=== PATIENT | female | born 1955 | race Caucasian/White ===

== ENCOUNTER 2018-05-04 12:49 | Outpatient (REF) | payer OTHER, SELFPAY ==
[2018-05-04 14:28] LABS: ALT 22 U/L (12-78); AST 22 U/L (15-37); Albumin 3.7 g/dL (3.4-5.0); Alkaline Phosphatase 85 U/L (46-116); Anion Gap 9.4 mmol/L (3-11); BUN 21 mg/dL (7-18); Bilirubin, Total 0.5 mg/dL (0.2-1.0); CO2 26.6 mmol/L (21.0-32.0); CREATININE 1.07 mg/dL (0.55-1.02); Chloride 105 mmol/L (98-107); Cholesterol 226 mg/dL (50-200); Estimated GFR 51.79 (mL/min/1.73m2); Glucose 93 mg/dL (70-100); HDL Cholesterol 77 mg/dL (40-60); LDL CHOLESTEROL 128 mg/dL (<100); Potassium 4.8 mmol/L (3.5-5.1); Sodium 141 mmol/L (136-145); Total Protein 7.3 g/dL (6.4-8.2); Triglyceride 50 mg/dL (30-150)
== END 2018-05-04 13:09 ==
LOC: NCHCN 12:49
PROVIDERS: PCP Nurse Practitioner; Visit Provider Nurse Practitioner
DX: Z00.00 Encounter for general adult medical examination without abnormal findings (principal); Z13.220 Encounter for screening for lipoid disorders; Z13.228 Encounter for screening for other metabolic disorders
CPT/HCPCS: 80053; 80061; 83721

== ENCOUNTER 2018-05-20 00:40 | Outpatient (CLI) | payer OTHER, SELFPAY ==
--- NOTE | 2018-05-20 15:52 | DI.MAMMO_ITS ---
SYMPTOMS/DIAGNOSIS: SCREENING, Z12.39 MAMMOGRAMS: Mammograms were interpreted according to the usual protocol including computer analysis with CAD system, tomosynthesis and C view imaging. The breasts are of moderate density with fairly symmetrical distribution of fibroglandular tissue. No dominant mass or clumped microcalcification is identified in either breast. Current examination is compared with previous examinations including June 2016 and there has been no gross interval change in appearance in comparison with the previous studies. CONCLUSION: No specific evidence of malignancy at this time. Routine screening examinations are suggested at yearly intervals in this age group according to the ACS/ACR guidelines. Category 1, breast density category B. MQSA ASSESSMENT OF FINDINGS: Negative. Category 1. Patient will receive a letter notifying them of these results. BI-RADS category B. There are scattered areas of fibroglandular density.
== END 2018-05-20 01:00 ==
PROVIDERS: PCP Nurse Practitioner; Visit Provider Nurse Practitioner
DX: Z12.31 Encounter for screening mammogram for malignant neoplasm of breast (principal)
CPT/HCPCS: 77063; 77067

== ENCOUNTER 2018-06-22 11:51 | Outpatient (REF) | payer OTHER, SELFPAY ==
--- NOTE | 2018-06-22 10:30 | PAPFT_PTH ---
PATIENT: Lisa Hyman LOC: [facility] U#:[id number] AGE/SX: 62/F ROOM: RE06/22/[address]: WINSTON Dunlap : 1955 BED: DIS: 06/22/2018 SPEC #: [id number] RECD: 06/22/18 13:06 STATUS: MAGALI REMaggi #: [id number] STACEY: 06/22/18 10:[address]: Ilana Peterson DEPT: [facility] Cytology RECD BY: Nahed Franco ENTERED: 06/22/18 13:06 SP TYPE: PAPFT OTHR DR: Saritha Daugherty Tissues: 1 - CX/ENDOCX FOR PAP SMEARS Procedures: PAP THIN PREP/[facility]VM Screening HPV DNA PROBE Comments: [id number]
== END 2018-06-22 12:11 ==
LOC: LBN 11:51
PROVIDERS: PCP Nurse Practitioner; Visit Provider Nurse Practitioner Family
DX: Z12.4 Encounter for screening for malignant neoplasm of cervix (principal); Z11.51 Encounter for screening for human papillomavirus (HPV)
CPT/HCPCS: 88142; 87624

== ENCOUNTER 2019-07-15 08:58 | Outpatient (REF) | payer MEDICARE, SELFPAY ==
[2019-07-15 15:20] LABS: ALT 27 U/L (14-59); AST 21 U/L (15-37); Albumin 3.8 g/dL (3.4-5.0); Alkaline Phosphatase 85 U/L (46-116); Anion Gap 7.9 mmol/L (3-11); BUN 17 mg/dL (7-18); Bilirubin, Total 0.4 mg/dL (0.2-1.0); CO2 26.1 mmol/L (21.0-32.0); CREATININE 1.14 mg/dL (0.55-1.02); Calcium 9.1 mg/dL (8.5-10.1); Calculated LDL 219 mg/dL (<100); Chloride 105 mmol/L (98-107); Cholesterol 314 mg/dL (<200); Estimated GFR 47.99 (mL/min/1.73m2); Glucose 85 mg/dL (74-106); HDL Cholesterol 80 mg/dL (40-60); Potassium 4.5 mmol/L (3.5-5.1); Sodium 139 mmol/L (136-145); Total Protein 7.6 g/dL (6.4-8.2); Triglyceride 75 mg/dL (<150)
== END 2019-07-15 09:18 ==
LOC: NCHCN 08:58
PROVIDERS: PCP Nurse Practitioner; Visit Provider Nurse Practitioner
DX: E78.5 Hyperlipidemia, unspecified (principal); Z90.5 Acquired absence of kidney
CPT/HCPCS: 80053; 80061

== ENCOUNTER 2019-07-19 15:14 | Outpatient (CLI) | payer MEDICARE, SELFPAY ==
--- NOTE | 2019-07-19 | DI.RAD_ITS ---
EXAM: XR CHEST 2V PA LATERAL CLINICAL HISTORY: CHRONIC CHRONIC, R05, HX OF SMOKING TECHNIQUE: 2D digital imaging was performed. COMPARISON: No exams were available for comparison FINDINGS: MEDIASTINUM: Normal. HEART: Normal. PULMONARY VASCULATURE: Normal. LUNGS: Clear. PLEURAL SPACE: No pleural effusion or pneumothorax. BONE:Degenerative changes in the spine. OTHER FINDINGS:Normal. IMPRESSION: No acute pulmonary findings. DATA REPOSITORY: RADIATION DOSE DELIVERED:
== END 2019-07-19 15:34 ==
PROVIDERS: PCP Nurse Practitioner; Visit Provider Nurse Practitioner
DX: R05 Cough (principal); Z87.891 Personal history of nicotine dependence
CPT/HCPCS: 71046

== ENCOUNTER 2019-09-18 07:18 | Outpatient (CLI) | payer MEDICARE, SELFPAY ==
[2019-09-19 18:06] LABS: COVID-19 RT-PCR Result NEGATIVE (Negative)
== END 2019-09-18 07:38 ==
PROVIDERS: PCP Nurse Practitioner; Visit Provider Family Medicine
DX: Z11.59 Encounter for screening for other viral diseases (principal); Z01.818 Encounter for other preprocedural examination
CPT/HCPCS: U0003

== ENCOUNTER 2019-09-22 03:40 | Outpatient (CLI) | payer MEDICARE, SELFPAY ==
[2019-09-22] MEDS: Inhaler, Assist Device 1 EACH MC (11:19)
[2019-09-22] MEDS: Albuterol HFA 18 GM 200 PUFF INH IH (11:19)
--- NOTE | 2019-09-24 13:09 | W.PFT ---
Date of service: 09/22/19 Time of Service: 10:00 Pulmonary Function Test Result Interpretation Spirometry: No evidence of obstructive airways disease, no bronchodilator response Lung Volumes: No evidence of restriction Diffusion Capacity: Moderately reduced, which is mildly reduced when corrected to alveolar volume Airway Pressure: Normal Impression Isolated moderate diffusion defect. This can be seen in early, developing interstitial lung disease or in pulmonary hypertension. therefore clinical correlation and perhaps further work-up is recommended Clinical Correlation therefore is recommended.
== END 2019-09-22 04:00 ==
PROVIDERS: PCP Nurse Practitioner; Visit Provider Nurse Practitioner
DX: R05 Cough (principal); Z87.891 Personal history of nicotine dependence
CPT/HCPCS: 94060; 94726; 94729

== ENCOUNTER 2019-10-05 11:02 | Outpatient (CLI) | payer MEDICARE, SELFPAY ==
--- NOTE | 2019-10-05 09:30 | DI.RAD_ITS ---
EXAM: XR WRIST RT COMPLETE CLINICAL HISTORY: R wrist pain TECHNIQUE: COMPARISON: No exams were available for comparison FINDINGS: Three views were obtained. There are slight hypertrophic degenerative changes at the radioulnar join t. There is severe cartilaginous joint space narrowing at the navicular greater multangular joint wi th subchondral sclerosis of adjacent portions of the navicular. Otherwise cartilaginous joint spaces of the carpus appear fairly well maintained. Slight marginal osteophyte formation noted at navicula r greater multangular joint and probably also at navicular lesser multangular joint. No other bony a bnormality seen. IMPRESSION: Degenerative changes at the navicular greater multangular joint and navicular lesser multangular join t. No other significant findings. RADIATION DOSE DELIVERED: Total DLP
== END 2019-10-05 11:22 ==
PROVIDERS: PCP Nurse Practitioner; Referring Provider Nurse Practitioner; Visit Provider Orthopaedic Surgery
DX: M19.031 Primary osteoarthritis, right wrist (principal); M25.531 Pain in right wrist; M65.4 Radial styloid tenosynovitis [de Quervain]
CPT/HCPCS: 99203; 73110

== ENCOUNTER → 2020-04-13 10:33 | Outpatient (BNVA) | payer MEDICARE, SELFPAY | PROVIDERS: PCP Nurse Practitioner; Referring Provider Nurse Practitioner; Visit Provider Student in an Organized Health Care Education/Training Program | DX: M19.031 Primary osteoarthritis, right wrist (principal) | CPT/HCPCS: 99213 ==

== ENCOUNTER → 2020-05-18 08:24 | Outpatient (BNVA) | payer MEDICARE, SELFPAY | PROVIDERS: PCP Nurse Practitioner; Referring Provider Nurse Practitioner; Visit Provider Student in an Organized Health Care Education/Training Program | DX: M19.031 Primary osteoarthritis, right wrist (principal) | CPT/HCPCS: 99441 ==

== ENCOUNTER 2020-07-27 00:59 | Outpatient (CLI) | payer MEDICARE, SELFPAY ==
--- NOTE | 2020-07-27 11:30 | DI.MAMMO_ITS ---
Exam(s) MAMMO SCREENING EXAM: MAMMO SCREENING CLINICAL HISTORY: screening. TECHNIQUE: Bilateral full field digital CC and MLO mammographic images were obtained with 3D tomosyn thesis and utilizing computer aided detection (CAD). COMPARISON: Prior mammograms dating back to 2010, the most recent being May 2018. FINDINGS: There are no CAD designations. There are no new spiculated masses nor malignant appearing microcalcification groups. There is no significant architectural distortion nor skin thickening-retraction. IMPRESSION: No radiographic evidence of malignancy. BI-RADS Category 1 - Negative Breast Density - Category B - Scattered areas of fibroglandular density Breast density Category C or D implies that the patient has dense breast tissue. Dense breast tissue can make it harder to find cancer on a mammogram. Dense breast tissue is also associated with an incr eased risk of breast cancer. This information about the result of the mammogram report was provided to the patient to raise their awareness. Use this report when you speak with the patient about their risks for breast cancer, which includes their family history. At that time, you may recommend additional screening tests (Ultrasoun d or MRI) as these tests may add significant information. A negative radiographic report should not delay biopsy if a dominant or clinically suspicious mass is present. Up to ten percent of cancers are not identified on mammography. A negative report may reinforce clinical impression. Adenosis and dense breasts may obscure an underlying neoplasm. False positive reports average 6 to 10%. Patient will receive a letter notifying them of these results.
== END 2020-07-27 01:19 ==
PROVIDERS: PCP Nurse Practitioner; Visit Provider Nurse Practitioner Family
DX: Z12.31 Encounter for screening mammogram for malignant neoplasm of breast (principal); R92.8 Other abnormal and inconclusive findings on diagnostic imaging of breast
CPT/HCPCS: 77063; 77067

== ENCOUNTER 2020-08-08 12:17 | Outpatient (REF) | payer MEDICARE, SELFPAY ==
[2020-08-08 19:59] LABS: ALT 25 U/L (14-59); AST 22 U/L (15-37); Albumin 3.9 g/dL (3.4-5.0); Alkaline Phosphatase 76 U/L (46-116); Anion Gap 10.9 mmol/L (3-11); BUN 19 mg/dL (7-18); Bilirubin, Total 0.5 mg/dL (0.2-1.0); CO2 25.1 mmol/L (21.0-32.0); CREATININE 1.1 mg/dL (0.55-1.02); Calcium 9.3 mg/dL (8.5-10.1); Calculated LDL 148 mg/dL (<100); Chloride 104 mmol/L (98-107); Cholesterol 254 mg/dL (<200); Estimated GFR 49.69 (mL/min/1.73m2); Glucose 122 mg/dL (74-106); HDL Cholesterol 96 mg/dL (40-60); Potassium 4.8 mmol/L (3.5-5.1); Sodium 140 mmol/L (136-145); Total Protein 7.7 g/dL (6.4-8.2); Triglyceride 53 mg/dL (<150)
== END 2020-08-08 12:18 | disposition home or self-care (01) ==
LOC: NCHCN 12:17
PROVIDERS: PCP Nurse Practitioner; Visit Provider Nurse Practitioner
DX: E78.5 Hyperlipidemia, unspecified (principal)
CPT/HCPCS: 80053; 80061

== ENCOUNTER 2020-08-15 15:28 | Outpatient (REF) | payer MEDICARE, SELFPAY ==
[2020-08-15 21:48] LABS: Hemoglobin A1C 5.7 % (<5.7)
== END 2020-08-15 15:29 | disposition home or self-care (01) ==
LOC: LBN 15:28
PROVIDERS: PCP Nurse Practitioner; Visit Provider Nurse Practitioner
DX: R73.9 Hyperglycemia, unspecified (principal)
CPT/HCPCS: 83036

== ENCOUNTER 2021-05-04 18:27 | Outpatient (REF) | payer MEDICARE, SELFPAY ==
[2021-05-04 16:11] LABS: Uric Acid 3.8 mg/dL (2.6-6.0)
== END 2021-05-04 18:28 | disposition home or self-care (01) ==
LOC: NCHCN 18:27
PROVIDERS: PCP Nurse Practitioner; Visit Provider Physician Assistant
DX: M25.531 Pain in right wrist (principal)
CPT/HCPCS: 84550

== ENCOUNTER 2021-08-15 17:04 | Outpatient (REF) | payer MEDICARE, SELFPAY ==
[2021-08-15 16:00] LABS: Abs Immature Grans 0.01 10^3/uL (0.0-0.06); Absolute Basophil Count 0.03 10^3/uL (0.0-0.2); Absolute Eosinophil Count 0.17 10^3/uL (0.0-0.7); Absolute Lymphocyte Count 1.88 10^3/uL (1.2-3.4); Absolute Monocyte Count 0.39 10^3/uL (0.1-0.8); Absolute Neutrophil Count 2.54 10^3/uL (1.2-6.7); Basophils % 0.6; Eosinophils % 3.4; HCT 39.2 % (36.0-46.0); HGB 12.5 g/dL (11.2-15.7); Immature Grans % 0.2; Lymphocytes % 37.5; MCHC 31.9 % (32.0-36.0); MCV 94 fL (80-95); MPV 11.6 fL (8.0-11.0); Monocytes % 7.8; Neutrophils % 50.5; Platelet Count 242 10^3/uL (130-400); RBC 4.16 10^6/uL (3.93-5.22); RDW 12.8 % (11.7-14.6); RDW-SD 44.7 fL; WBC 5.02 10^3/uL (4.4-10.8)
[2021-08-15 16:01] LABS: ALT 23 U/L (14-59); AST 22 U/L (15-37); Albumin 3.7 g/dL (3.4-5.0); Alkaline Phosphatase 71 U/L (46-116); Anion Gap 8.2 mmol/L (3-11); BUN 21 mg/dL (7-18); Bilirubin, Total 0.4 mg/dL (0.2-1.0); CO2 27.8 mmol/L (21.0-32.0); Calcium 8.8 mg/dL (8.5-10.1); Calculated LDL 128 mg/dL (<100); Chloride 104 mmol/L (98-107); Cholesterol 228 mg/dL (<200); Glucose 98 mg/dL (74-106); HDL Cholesterol 84 mg/dL (40-60); Potassium 4.4 mmol/L (3.5-5.1); Sodium 140 mmol/L (136-145); Total Protein 6.9 g/dL (6.4-8.2); Triglyceride 83 mg/dL (<150)
== END 2021-08-15 17:05 | disposition home or self-care (01) ==
LOC: NCHCN 17:04
PROVIDERS: PCP Nurse Practitioner; Visit Provider Nurse Practitioner Family
DX: E78.5 Hyperlipidemia, unspecified (principal)
CPT/HCPCS: 80053; 80061; 85025

== ENCOUNTER 2021-09-12 15:43 | Outpatient (REF) | payer MEDICARE, SELFPAY ==
[2021-09-12 15:37] LABS: COMMENT (LAB VIEW ONLY) 98.94 mg/dL; PROTEIN 8.3 mg/dL; Prot/Crea Ur Ratio 0.08
[2021-09-12 15:39] LABS: COMMENT (LAB VIEW ONLY) 100.42 mg/dL; Microalb ug/mg Crea 4.6 ug/mg Cr
== END 2021-09-12 15:44 | disposition home or self-care (01) ==
LOC: LBN 15:43
PROVIDERS: PCP Nurse Practitioner; Visit Provider Nurse Practitioner Family
DX: E78.5 Hyperlipidemia, unspecified (principal); F10.10 Alcohol abuse, uncomplicated; Z90.5 Acquired absence of kidney
CPT/HCPCS: 82043; 82565; 82570; 84156

== ENCOUNTER → 2021-10-04 00:52 | Outpatient (CLI) | payer MEDICARE, SELFPAY ==
--- NOTE | 2021-10-04 13:22 | DI.DEXA_ITS ---
Exam(s) XR DEXA BONE DENSITY W/WO LUIS EXAM: XR DEXA BONE DENSITY W/WO LUIS CLINICAL HISTORY: SCREENING FOR OSTEOPOROSIS IN POSTMENOPAUSAL WOMAN,Z78.0 TECHNIQUE: COMPARISON: CR LUMBAR SPINE COMPLETE from 10/14/2013 FINDINGS: DEXA scan was performed according to the usual protocol. Please see the accompanying data sheets Findings for lumbar spine scanning are a T-score 1.6. Left hip scanning shows T-score 1.0 with left femoral neck T-score 0. Left forearm scanning shows T-score 0.3. IMPRESSION: Measurements are consistent with normal bone density according to the the WHO criteria. The lateral vertebral scanogram shows no evidence of a vertebral compression fracture. RADIATION DOSE DELIVERED: Total DLP
== END ==
PROVIDERS: PCP Nurse Practitioner; Visit Provider Nurse Practitioner Family
DX: Z78.0 Asymptomatic menopausal state (principal); Z13.820 Encounter for screening for osteoporosis
CPT/HCPCS: 77080

== ENCOUNTER 2022-02-25 02:56 | Outpatient (CLI) | payer MEDICARE, SELFPAY ==
[2022-02-25 12:17] LABS: HCT 38.3 % (36.0-46.0); HGB 12.4 g/dL (11.2-15.7); MCH 29.8 pg (27.0-33.0); MCHC 32.4 % (32.0-36.0); MCV 92 fL (80-95); MPV 12.7 fL (8.0-11.0); Platelet Count 229 10^3/uL (130-400); RBC 4.16 10^6/uL (3.93-5.22); RDW 12.4 % (11.7-14.6); RDW-SD 42.1 fL; WBC 5.59 10^3/uL (4.4-10.8)
[2022-02-25 12:54] LABS: ALT 27 U/L (14-59); AST 28 U/L (15-37); Albumin 3.8 g/dL (3.4-5.0); Alkaline Phosphatase 74 U/L (46-116); BUN 15 mg/dL (7-18); Bilirubin, Total 0.3 mg/dL (0.2-1.0); CREATININE 1.2 mg/dL (0.55-1.02); Calcium 9.4 mg/dL (8.5-10.1); Calculated LDL 97 mg/dL (<100); Chloride 102 mmol/L (98-107); Cholesterol 181 mg/dL (<200); Estimated GFR 49.61 (mL/min/1.73m2); Glucose 84 mg/dL (74-106); HDL Cholesterol 74 mg/dL (40-60); Potassium 4.5 mmol/L (3.5-5.1); Sodium 138 mmol/L (136-145); Total Protein 7.7 g/dL (6.4-8.2); Triglyceride 53 mg/dL (<150)
[2022-02-25 12:56] LABS: Absolute Basophil Count 0.06 10^3/uL (0.0-0.2); Absolute Eosinophil Count 0.17 10^3/uL (0.0-0.7); Absolute Lymphocyte Count 2.01 10^3/uL (1.2-3.4); Absolute Monocyte Count 0.34 10^3/uL (0.1-0.8); Absolute Neutrophil Count 3.02 10^3/uL (1.2-6.7); Atypical Lymphocytes % 10; Diff Comment Manual Differential; RBC Morphology Normal
== END 2022-02-25 02:57 | disposition home or self-care (01) ==
LOC: LOS 02:56
PROVIDERS: PCP Nurse Practitioner Family; Visit Provider Nurse Practitioner Family
DX: E78.5 Hyperlipidemia, unspecified (principal); Z51.81 Encounter for therapeutic drug level monitoring; R11.0 Nausea
CPT/HCPCS: 36415; 80053; 80061; 85025

== ENCOUNTER 2022-03-08 01:06 | Outpatient (CLI) | payer MEDICARE, SELFPAY ==
[2022-03-11 14:16] LABS: IgA 233 mg/dL (85-499); Interpretation (See Note); Tissue Transglutaminase IgA <1.2 U/mL (<4.0)
== END 2022-03-08 01:07 | disposition home or self-care (01) ==
LOC: LOS 01:06
PROVIDERS: PCP Nurse Practitioner Family; Visit Provider Nurse Practitioner Family
DX: R11.0 Nausea (principal); R19.7 Diarrhea, unspecified
CPT/HCPCS: 36415; 82784; 83516

== ENCOUNTER 2022-04-22 11:55 | Outpatient (CLI) | payer MEDICARE, SELFPAY ==
--- NOTE | 2022-04-22 10:15 | DI.RAD_ITS ---
Exam(s) XR WRIST RT COMPLETE EXAM: XR WRIST RT COMPLETE CLINICAL HISTORY: R wrist pain. TECHNIQUE: 2D digital imaging was performed of the right wrist. Three views were obtained. PA, lat eral and oblique views were obtained. COMPARISON: CR XR WRIST RT COMPLETE from 10/05/2019 FINDINGS: BONES: No acute fracture is present. No bony destructive lesion is seen. JOINTS: The carpal bones are normally aligned. There again seen degenerative changes at the articulat ion between the scaphoid and the trapezium and trapezoid bones. This has shown slight progression si nce the prior examination. SOFT TISSUE: Normal. IMPRESSION: Progressive degenerative changes seen in the wrist as described. DATA REPOSITORY: RADIATION DOSE DELIVERED:
--- NOTE | 2022-04-22 10:15 | DI.RAD_ITS ---
Exam(s) XR WRIST LT COMPLETE EXAM: XR WRIST LT COMPLETE CLINICAL HISTORY: L wrist pain. TECHNIQUE: 2D digital imaging was performed of the left wrist. Three images were obtained. PA, obl ique and lateral views were obtained. COMPARISON: No exams were available for comparison FINDINGS: BONES: No acute fracture is present. No bony destructive lesion is seen. JOINTS: The carpal bones are normally aligned. There is joint space narrowing and subchondral scleros is seen at the articulation between the scaphoid and the trapezium and trapezoid. The joint spaces a re otherwise well maintained. SOFT TISSUE: Normal. IMPRESSION: Degenerative changes in the left wrist as described. DATA REPOSITORY: RADIATION DOSE DELIVERED:
== END 2022-04-22 11:56 | disposition home or self-care (01) ==
LOC: DIORS 11:55
PROVIDERS: PCP Nurse Practitioner Family; Referring Provider Nurse Practitioner Family; Visit Provider Student in an Organized Health Care Education/Training Program
DX: M19.031 Primary osteoarthritis, right wrist (principal); M19.032 Primary osteoarthritis, left wrist
CPT/HCPCS: 99213; 73110

== ENCOUNTER → 2022-05-02 13:55 | Outpatient (BNVA) | payer MEDICARE, SELFPAY | PROVIDERS: PCP Nurse Practitioner Family; Referring Provider Nurse Practitioner Family; Visit Provider Student in an Organized Health Care Education/Training Program | DX: M19.031 Primary osteoarthritis, right wrist (principal); M19.032 Primary osteoarthritis, left wrist | CPT/HCPCS: 20606; J1030 ==

== ENCOUNTER 2022-05-16 11:47 | Outpatient (REF) | payer MEDICARE, SELFPAY ==
--- NOTE | 2022-05-16 11:15 | PAPFT_PTH ---
PATIENT: Lisa Hyman LOC: [facility] U#:[id number] AGE/SX: 66/F ROOM: RE05/16/[address]: Bella Boone MD : 1955 BED: DIS: 05/16/2022 SPEC #: [id number] RECD: 05/16/22 16:38 STATUS: MAGALI REMaggi #: [id number] STACEY: 05/16/22 11:[address]: Bella Boone DEPT: [facility] Cytology RECD BY: Nahed Franco ENTERED: 05/16/22 16:38 SP TYPE: PAPFT OT DR: Zeyad Santos DNP Tissues: 1 - CX/ENDOCX FOR PAP SMEARS Procedures: PAP THIN PREP/[facility]VM Screening HPV DNA PROBE Comments: [id number]
== END 2022-05-16 11:48 | disposition home or self-care (01) ==
LOC: LBN 11:47
PROVIDERS: PCP Nurse Practitioner Family; Visit Provider Obstetrics & Gynecology
DX: Z11.51 Encounter for screening for human papillomavirus (HPV) (principal); Z01.419 Encounter for gynecological examination (general) (routine) without abnormal findings
CPT/HCPCS: 88142; 87624

== ENCOUNTER 2022-08-19 01:32 | Outpatient (CLI) | payer MEDICARE, SELFPAY ==
--- NOTE | 2022-08-19 06:30 | DI.MAMMO_ITS ---
Exam(s) MAMMO SCREENING EXAM: MAMMO SCREENING CLINICAL HISTORY: screening,z12.39. TECHNIQUE: Bilateral full field digital CC and MLO mammographic images were obtained with 3D tomosyn thesis and utilizing computer aided detection (CAD). COMPARISON: Prior mammograms were reviewed. FINDINGS: There has been no significant change in the appearance and distribution of the fibroglandular tissue. There are no CAD designations. There are no new spiculated masses nor malignant appearing microcalcification groups. There is no significant architectural distortion nor skin thickening-retraction. IMPRESSION: No radiographic evidence of malignancy. BI-RADS Category 1 - Negative Breast Density - Category B - Scattered areas of fibroglandular density Breast density Category C or D implies that the patient has dense breast tissue. Dense breast tissue can make it harder to find cancer on a mammogram. Dense breast tissue is also associated with an incr eased risk of breast cancer. This information about the result of the mammogram report was provided to the patient to raise their awareness. Use this report when you speak with the patient about their risks for breast cancer, which includes their family history. At that time, you may recommend additional screening tests (Ultrasoun d or MRI) as these tests may add significant information. A negative radiographic report should not delay biopsy if a dominant or clinically suspicious mass is present. Up to ten percent of cancers are not identified on mammography. A negative report may reinforce clinical impression. Adenosis and dense breasts may obscure an underlying neoplasm. False positive reports average 6 to 10%. Patient will receive a letter notifying them of these results.
== END 2022-08-19 01:52 ==
PROVIDERS: PCP Nurse Practitioner Family; Visit Provider Nurse Practitioner Family
DX: Z12.31 Encounter for screening mammogram for malignant neoplasm of breast (principal)
CPT/HCPCS: 77063; 77067

== ENCOUNTER → 2022-08-22 12:58 | Outpatient (BNVA) | payer MEDICARE, SELFPAY | PROVIDERS: PCP Nurse Practitioner Family; Referring Provider Nurse Practitioner Family; Visit Provider Student in an Organized Health Care Education/Training Program | DX: M19.031 Primary osteoarthritis, right wrist (principal); M19.032 Primary osteoarthritis, left wrist | CPT/HCPCS: 99213 ==

== ENCOUNTER 2023-02-25 04:47 | Outpatient (CLI) | payer MEDICARE, SELFPAY ==
[2023-02-25 12:44] LABS: ALT 20 U/L (14-59); AST 18 U/L (15-37); Albumin 3.5 g/dL (3.4-5.0); Alkaline Phosphatase 79 U/L (46-116); Anion Gap 4.3 mmol/L (3-11); BUN 16 mg/dL (7-18); Bilirubin, Total 0.4 mg/dL (0.2-1.0); CO2 29.7 mmol/L (21.0-32.0); Calcium 9.2 mg/dL (8.5-10.1); Calculated LDL 136 mg/dL (<100); Chloride 105 mmol/L (98-107); Cholesterol 234 mg/dL (<200); Estimated GFR 61.36 (mL/min/1.73m2); Glucose 96 mg/dL (74-106); HDL Cholesterol 81 mg/dL (40-60); Potassium 4.3 mmol/L (3.5-5.1); Sodium 139 mmol/L (136-145); Total Protein 7.2 g/dL (6.4-8.2); Triglyceride 86 mg/dL (<150)
[2023-02-25 19:53] LABS: HIV-1/2 Ag & Ab Screen Negative (Negative)
[2023-02-25 20:00] LABS: Hepatitis C Ab w Rflx HCV PCR Negative (Negative)
== END 2023-02-25 04:48 | disposition home or self-care (01) ==
LOC: LOS 04:47
PROVIDERS: PCP Nurse Practitioner Family; Visit Provider Nurse Practitioner Family
DX: Z11.59 Encounter for screening for other viral diseases (principal); E78.5 Hyperlipidemia, unspecified; Z11.4 Encounter for screening for human immunodeficiency virus [HIV]
CPT/HCPCS: 36415; 80053; 80061; 86803; 87389

== ENCOUNTER 2023-03-04 03:56 | Outpatient (CLI) | payer MEDICARE, SELFPAY ==
[2023-03-04] MEDS: Levalbuterol HFA 15 GM INH 4 PUFF IH (11:07)
[2023-03-04] MEDS: Inhaler, Assist Device 1 EACH MC (11:07)
--- NOTE | 2023-03-04 14:46 | W.PFT ---
Date of service: 03/04/23 Time of Service: 10:06 Pulmonary Function Test Result Indications: Chronic Cough Interpretation Spirometry: There is no airflow limitation. No bronchodilator response. Lung Volumes: Normal lung volumes Diffusion Capacity: Normal diffusion Airway Pressure: Normal airways resistance Impression Normal pulmonary function testing Clinical Correlation therefore is recommended.
== END 2023-03-04 03:57 | disposition home or self-care (01) ==
LOC: RT 03:56
PROVIDERS: PCP Nurse Practitioner Family; Visit Provider Nurse Practitioner Family
DX: R05.3 Chronic cough (principal)
CPT/HCPCS: 94060; 94726; 94729

== ENCOUNTER → 2023-03-05 01:40 | Outpatient (CLI) | payer MEDICARE, SELFPAY ==
--- NOTE | 2023-03-05 07:30 | DI.CTLCSR_ITS ---
Exam(s) CT CHEST LUNG CANCER SCREEN EXAM: CT CHEST LUNG CANCER SCREEN CLINICAL HISTORY: Screening for lung cancer,former smoker, z87.891 TECHNIQUE: Imaging Protocol: Axial computed tomography images with coronal and sagittal reformatted images were created and reviewed. Low dose screening protocol. COMPARISON: CR CHEST 2 VIEWS PA,LAT from 11/11/2013 FINDINGS: Tracheobronchial tree: No bronchiectasis or mucus plugging.. Mediastinum and Gunjan: No dominant adenopathy or fluid collection. Pulmonary parenchyma: No consolidation or dominant measurable mass. Mild emphysematous changes. Lung Nodules: None. Pleura: No effusion. No pneumothorax. Heart: The heart is not dilated. No coronary artery calcifications are seen. Aorta: Thoracic aorta non-dilated. Upper abdomen: Unremarkable. Bones: Unremarkable for age. Soft Tissues: Unremarkable. IMPRESSION: No suspicious pulmonary nodules. Lung RADS Cat 1 - Negative: No nodules and definitely benign nodules Lung-RADS 1.0 CATEGORIES: Category 0 - Prior chest CT exam(s) being located for comparison. Category 1 - Annual screening in 12 months. No nodules or definitely benign nodules. Category 2 - Annual screening in 12 months. Benign appearance. Nodules with low likelihood of becomin g active cancer. Category 3 - 6-month follow-up. Probably benign. Short-term follow-up suggested. Nodules with low lik elihood of becoming active cancer. Category 4A - 3-month follow-up and CT/PET if >8 mm in size. Suspicious finding. Findings which requi re additional testing. Category 4B - Findings which require additional testing and tissue sampling. Category 4X - Category 3 or 4 nodules with additional features or imaging findings that increases the suspicion of malignancy. Modifier S- Potentially clinically significant findings (non lung cancer) RADIATION DOSE DELIVERED: 79.67mGy.cm Total DLP DATA REPOSITORY: All CT scans at this facility are submitted to the National Radiology Data Registry (NRDR) Dose Index Registry (DIR) with the [employer] (ACR). RADIATION OPTIMIZATION: All CT scans at this facility use at least one of these dose optimization te chniques: automated exposure control; mA and/or kV adjustment per patient size (includes targeted exa ms where dose is matched to clinical indication); or iterative reconstruction.
--- NOTE | 2023-03-05 07:30 | DI.RAD_ITS ---
Exam(s) XR LUMBAR SPINE COMPLETE EXAM: XR LUMBAR SPINE COMPLETE CLINICAL HISTORY: low back pain,m54.50. TECHNIQUE: 2D digital imaging was performed. Five views. COMPARISON: CR XR DEXA BONE DENSITY W/WO LUIS from 10/04/2021 FINDINGS: BONES: No fracture or destructive lesion. Vertebral body heights are maintained. Mild to moderate fa cet hypertrophy identified L4-5 head and L5-S1. Endplate osteophytes greater on the right side.. DISKS: Moderate narrowing of the L3-4 and L4-5 disc spaces. ALIGNMENT: Slight spondylolisthesis at L4-5 secondary to facet degenerative changes. Dextroscolios is centered at the thoracolumbar junction. SOFT TISSUE: Normal. IMPRESSION: Degenerative disc changes and facet degenerative changes. Mild scoliosis. DATA REPOSITORY: RADIATION DOSE DELIVERED:
== END ==
PROVIDERS: PCP Nurse Practitioner Family; Visit Provider Nurse Practitioner Family
DX: Z12.2 Encounter for screening for malignant neoplasm of respiratory organs (principal); Z87.891 Personal history of nicotine dependence; M51.26 Other intervertebral disc displacement, lumbar region
CPT/HCPCS: 36415; 71271; 72110

== ENCOUNTER 2023-03-05 15:29 | Outpatient (REF) | payer MEDICARE, SELFPAY ==
[2023-03-07 17:02] LABS: Botrytis Cinerea IgE <0.10 kU/L (<0.70); False Ragweed, IgE <0.10 kU/L (<0.70); Finch Feathers, IgE <0.10 kU/L (<0.70)
[2023-03-07 19:50] LABS: Aspergillus Fumigatus IgE <0.10 kU/L (<0.70); Aspergillus Niger, IgE <0.10 kU/L (<0.70); Bermuda Grass IgE <0.10 kU/L (<0.70); Cat Epithelium IgE <0.10 kU/L (<0.70); Cedar, IgE <0.10 kU/L (<0.70); Chicken Feathers IgE <0.10 kU/L (<0.70); Cockroach IgE 0.14 kU/L (<0.70); D Farinae IgE 0.13 kU/L (<0.70); D Pteronyssinus IgE 0.11 kU/L (<0.70); Dog Dander IgE <0.10 kU/L (<0.70); Eastern Sycamore IgE <0.10 kU/L (<0.70); Giant Ragweed IgE <0.10 kU/L (<0.70); Goldenrod IgE <0.10 kU/L (<0.70); House Dust/Greer Lab, IgE <0.10 kU/L (<0.70); Oak IgE <0.10 kU/L (<0.70); Penicillium chrysogenum IgE <0.10 kU/L (<0.70); Short Ragweed IgE <0.10 kU/L (<0.70); Silver Birch IgE <0.10 kU/L (<0.70); Spruce, IgE <0.10 kU/L (<0.70); White Pine, IgE <0.10 kU/L (<0.70)
[2023-03-09 12:07] LABS: IgE 29 IU/mL (<158)
[2023-03-10 16:52] LABS: CLASS 0; Cedar Red IgE <0.10 kU/L (<0.35)
== END 2023-03-05 15:30 | disposition home or self-care (01) ==
LOC: LBN 15:29
PROVIDERS: PCP Nurse Practitioner Family; Visit Provider Physician Assistant Surgical
DX: T78.40XA Allergy, unspecified, initial encounter (principal)
CPT/HCPCS: 86003; 82785; 84307; 86592

== ENCOUNTER → 2023-05-21 04:36 | Outpatient (CLI) | payer MEDICARE, SELFPAY ==
--- NOTE | 2023-05-21 07:30 | DI.RAD_ITS ---
Exam(s) RF BARIUM SWALLOW EXAM: RF BARIUM SWALLOW CLINICAL HISTORY: chronic cough, ? aspiration,r05.3 TECHNIQUE: 2D and realtime digital imaging was performed. CONTRAST MATERIAL: Oral barium Oral water soluble contrast was administered. COMPARISON: No exams were available for comparison FINDINGS: ESOPHAGRAM: Performed standing and recumbent air-contrast technique. Tri level anterior fusion plate in the lower cervical spine W3O4-5-4 level noted. Swallowing appeared intact without aspiration evident. No obvious hypertense upper esophageal sphinc ter. No Zenker's diverticulum. There are no fixed lesions evident in the esophagus and esophagus di ameters normal. No tertiary waves nor evidence of achalasia demonstrated. GE junction appears unrem arkable with no evidence of hiatal hernia nor Schatzki ring. No reflux demonstrated during this exam . IMPRESSION: No significant findings on this esophagram study RADIATION DOSE DELIVERED: ant Felix=11.3 mGy
[2023-05-21] MEDS: Barium Sulfate 98% W/W 140 ML BTL 100 ML PO (10:41)
[2023-05-21] MEDS: Barium Sulfate 60% W/V 355 ML BTL 300 ML PO (10:42)
[2023-05-21] MEDS: Simethicone/Sod Bicarb/Cit Ac, 4 gram PACKET 1 PACKET PO (10:43)
== END ==
PROVIDERS: PCP Nurse Practitioner Family; Visit Provider Registered Nurse Maternal Newborn
DX: R05.3 Chronic cough (principal); Z98.1 Arthrodesis status
CPT/HCPCS: 74221; J3490

== ENCOUNTER → 2023-07-17 14:39 | Outpatient (CLI) | payer MEDICARE, SELFPAY ==
--- NOTE | 2023-07-17 14:23 | DI.RAD_ITS ---
Exam(s) XR KNEE LT 3V AP,LAT,JANIS EXAM: XR KNEE LT 3V AP,LAT,JANIS CLINICAL HISTORY: M25.562 atraumatic pain x 6 months, left knee. TECHNIQUE: 2D digital imaging was performed. COMPARISON: No exams were available for comparison FINDINGS: 3 views No evidence of fracture or obvious joint effusion. No significant joint space narrowing. No osteoch ondral defects. Bone density normal. No osseous lesions. IMPRESSION: No significant radiographic findings in the left knee. DATA REPOSITORY: RADIATION DOSE DELIVERED:
== END ==
PROVIDERS: PCP Nurse Practitioner Family; Visit Provider Nurse Practitioner Family
DX: M25.562 Pain in left knee (principal)
CPT/HCPCS: 73562

== ENCOUNTER 2024-03-17 01:15 | Outpatient (CLI) | payer MEDICARE, SELFPAY ==
[2024-03-17 12:45] LABS: ALT 16 U/L (14-59); Albumin 3.6 g/dL (3.4-5.0); Alkaline Phosphatase 77 U/L (46-116); Anion Gap 6.5 mmol/L (3-11); BUN 20 mg/dL (7-18); Bilirubin, Total 0.41 mg/dL (0.2-1.0); CO2 27.5 mmol/L (21.0-32.0); CREATININE 1.3 mg/dL (0.55-1.02); Calcium 9.4 mg/dL (8.5-10.1); Calculated LDL 194 mg/dL (<100); Chloride 102 mmol/L (98-107); Cholesterol 291 mg/dL (<200); Estimated GFR 44.51 (mL/min/1.73m2); Glucose 90 mg/dL (74-106); HDL Cholesterol 83 mg/dL (40-60); Potassium 4.3 mmol/L (3.5-5.1); Sodium 136 mmol/L (136-145); Total Protein 7.7 g/dL (6.4-8.2); Triglyceride 72 mg/dL (<150)
[2024-03-17 12:59] LABS: AST 20 U/L (15-37)
== END 2024-03-17 01:16 | disposition home or self-care (01) ==
LOC: LOS 01:15
PROVIDERS: PCP Nurse Practitioner Family; Visit Provider Nurse Practitioner Family
DX: E78.5 Hyperlipidemia, unspecified (principal)
CPT/HCPCS: 36415; 80053; 80061

== ENCOUNTER 2024-04-07 02:05 | Outpatient (CLI) | payer MEDICARE, SELFPAY ==
--- NOTE | 2024-04-07 06:30 | DI.MAMMO_ITS ---
Exam(s) MAMMO SCREENING EXAM: MAMMO SCREENING CLINICAL HISTORY: screening,z12.39 TECHNIQUE: Mammograms were interpreted according to the usual protocol including computer analysis w TOMODO CAD system, tomosynthesis and C-view imaging. COMPARISON: 2014 through 2022 FINDINGS: The breasts are composed of scattered fibroglandular densities, Breast Density category B. No suspicious masses or suspicious microcalcifications are seen. No skin thickening or abnormal axillary lymph nodes are seen. There has been no significant change from prior exams. IMPRESSION: BI-RADS Category 1, Negative mammogram Yearly screening mammography is recommended. Breast Density - Category B, scattered fibroglandular densities. A negative radiographic report should not delay biopsy if a dominant or clinically suspicious mass is present. Up to ten percent of cancers are not identified on mammography. A negative report may reinforce clinical impression. Adenosis and dense breasts may obscure an underlying neoplasm. False positive reports average 6 to 10%. Patient will receive a letter notifying them of these results.
== END 2024-04-07 02:25 ==
LOC: DI 02:05
PROVIDERS: PCP Nurse Practitioner Family; Visit Provider Nurse Practitioner Family
DX: Z12.31 Encounter for screening mammogram for malignant neoplasm of breast (principal); E78.5 Hyperlipidemia, unspecified; R92.323 Mammographic fibroglandular density, bilateral breasts
CPT/HCPCS: 77063; 77067

== ENCOUNTER → 2024-06-17 13:23 | Outpatient (BNVA) | payer MEDICARE, SELFPAY | PROVIDERS: PCP Nurse Practitioner Family; Referring Provider Nurse Practitioner Family; Visit Provider Physical Therapy Assistant | DX: Z12.11 Encounter for screening for malignant neoplasm of colon (principal); Z80.0 Family history of malignant neoplasm of digestive organs ==

== ENCOUNTER 2024-07-26 06:12 | Day surgery (SDC) | payer MEDICARE, SELFPAY ==
--- NOTE | 2024-07-25 20:03 | HPE_ITS ---
Assessment and Plan Assessment and plan (1) Encounter for screening colonoscopy: Status: Acute Assessment and plan: We reviewed the plan for a screening colonoscopy and Leonarda had a chance to ask any questions. She is able to provide informed consent and we can proceed with colonoscopy as planned. History of Present Illness History of Present Illness Chief Complaint: screening colonoscopy Narrative: 68 y/o female with history of ETOH abuse, HLD, CKD and anxiety presents for colonoscopy screening pre-op. Her last screening was in 2014 which was unremarkable. She reports a family history of anal cancer in her sister. She denies any changes in bowel habits including bloody or black tarry stools, abdominal pain, diarrhea or constipation. She denies constitutional symptoms. She denies chest pain, palpitations, dyspnea or dyspnea with exertion. She denies prior history or family history of adverse reactions or complications with anesthesia. The patient denies any history of stroke, ME, seizures, bleeding or clotting disorders. She denies having any implanted metal in her body. Since her last encounter there have not been any significant changes to the interval history. [facility] All Active Problems Encounter for screening colonoscopy (Acute) Obesity (Chronic) Encounter for weight management (Acute) Left hip pain (Acute) Scoliosis (Acute) Fecal incontinence (Acute) Left knee pain (Acute) Reactive airway disease (Acute) Allergic response (Acute) Hyperlipidemia (Acute) Lower back pain (Acute) CKD (chronic kidney disease) (Chronic) Chronic cough (Acute) Arthritis of dkrflzxz-lybdstaos-nllecgcsf joint of both hands (Acute) Steroid injection: ~2019 (right) Medical History Hyperlipidemia Lumbar back pain BMI 27.0-27.9,adult Hand numbness Elevated blood sugar Chronic rhinitis Anxiety Alcohol abuse Arthritis of tckzsngg-tnvlqbige-unjgqpmxk joint of right hand Primary osteoarthritis, right wrist De Quervain's tenosynovitis, right Vaginal atrophy Lichen sclerosus (06/17/16) Panic attack Surgical History History of wisdom tooth extraction History of bunionectomy H/O colonoscopy Ligation of fallopian tube Nephrectomy kidney donation Family History (Updated 03/15/24 @ 13:28 by Cristina Thayer) Mother , 42 Lung cancer Father , 42 Myocardial infarction Heart disease Sister , 73 Heart disease Sister , 74 Thyroid disorder Pulmonary fibrosis Brother , 42 Heart disease Myocardial infarction Sister Cystic fibrosis Brother , 21 Cystic fibrosis Brother , 76 Depression Heart disease Renal failure Maternal Grandfather , 94 No problems noted. Sister Anal cancer Niece Stroke Ovarian cancer Social History (Updated 06/18/24 @ 08:29 by GAMA Jacob) Smoking/Tobacco Use Status: Former Tobacco Use tobacco type: cigarettes Quit Date: 02/10/79 Tobacco: How many years used: 20 Quit status: not considering quitting Second Hand Exposure: Yes Smoking risk assessment performed?: Yes Alcohol Intake: former Year quit: 2023 Previous attempts at quittin Drug use: Current Sobriety Substance use type: former substance user and marijuana Caregiver/Support person: No Household members: spouse Housing: house Communication Needs: None Do you need help understanding health information?: Rarely Pets and animals: Yes Pets and animals: cat(s) Sexually active: No Do you think of yourself as: straight/heterosexual Current gender identity: female What is your relationship status?: How often do you talk on the phone with friends or family?: three or more times per week How often do you get together with friends or relatives?: twice per week How often do you attend oriental orthodox or presybeterian services?: decline to answer Do you belong to any clubs or organized social groups?: yes Panel score (0-1 are the most socially isolated patients): 3 What type of physical activity do you participate in: walking Duration: 45-60 minutes/day Frequency: daily Gita/Zoroastrianism: Temple Seatbelt use: always Helmet use: No Drive intox or ride w/intox 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 Female Reproductive History Menstrual Age of Menarche: 15 Duration of menses: 6-7 days control method: none History History 0 Para Hx # Term Pregnancies Multiple births Hx # Pregnancies Ectopic pregnancies AB induced Hx Number of Living Children AB spontaneous Meds Allergies and Home Medications Allergies Allergy/AdvReac Type Severity Reaction Status Date / Time latex Allergy Intermediate blisters Verified 07/26/24 06:29 Sulfa (Sulfonamide Allergy One kidney Verified 07/26/24 06:29 Antibiotics) Home Medications ?Medication ?Instructions ?Recorded ?Confirmed ?Type estradiol 0.01% (0.1 mg/gram) 1 appful vaginal DAILY # 127.5 grams 03/13/24 07/26/24 Rx vaginal cream (Estrace) valacyclovir 500 mg tablet 500 mg PO PRN #30 tabs 02/03/0607/26/24 Rx lorazepam 0.5 mg tablet 0.5 mg PO QDAY PRN anxiety # 10 tabs 03/16/24 07/26/24 Rx meloxicam 15 mg tablet See Rx Instructions .Route 0 06/11/24 07/26/24 Rx .COMPLEX #90 tabs rosuvastatin 20 mg tablet 20 mg PO DAILY #90 tabs 06/1007/26/24 Rx semaglutide (weight loss) 0.25 0.25 mg (0.5 mL) subcut QWEEK #5 mL 07/01/24 07/26/24 Rx mg/0.5 mL subcutaneous pen injector (Vittana) Held on 07/26/24. Instructions: Pt Stopped/Never Started Exam Const General: cooperative, healthy appearing and not in acute distress Neck Neck: normal visual inspection, no lymphadenopathy and supple Resp Effort & Inspection: normal respiratory effort Auscultation: clear to auscultation bilaterally Cardio Jugular venous pressure: no JVD Rate: regular rate Rhythm: regular rhythm Heart Sounds: S1 normal and S2 normal GI Inspection: normal to inspection Palpation: soft, no guarding, no hernias and nontender Percussion: normal to percussion Auscultation: normal bowel sounds Neuro General: patient alert, patient awake and patient oriented x3 Psych Appearance: grossly normal
--- NOTE | 2024-07-25 20:09 | W.PM.DSUDISC ---
Date of service: 07/26/24 Discharge Plan Disposition Patient Disposition: Home Condition: Good Discharge Details Reason For Visit: screening colonsocopy Attending Provider: Zain Cifuentes Primary Care Provider: Zeyad Paul Home Meds and New Rx's Prescriptions: Continued meloxicam 15 mg tablet See Rx Instructions .ROUTE .COMPLEX Qty: 90 3RF Dose Instruction: TAKE 1 TABLET DAILY Rx Instructions: TAKE 1 TABLET DAILY valacyclovir 500 mg tablet 500 mg PO PRN Qty: 30 0RF estradiol [Estrace] 0.01 % (0.1 mg/gram) cream 1 appful vaginal DAILY Qty: 127.5 4RF Rx Instructions: once daily for a week, then 2-3 times per week prn lorazepam 0.5 mg tablet 0.5 mg PO QDAY PRN (Reason: anxiety) Qty: 10 0RF rosuvastatin 20 mg tablet 20 mg PO DAILY Qty: 90 4RF Wegovy 0.25 mg/0.5 mL pen injector 0.25 mg subcut QWEEK Qty: 5 0RF Rx Instructions: Concentration: Cynocobalamin 0.5mg/Semaglutide 1mg/mL Semaglutide and cyncobalamin for Compounding. Patient requires additional drug component to decrease risk of side effects of fatigue. Week 1-4 : Inject 0.25ml (25 syringe units) once weekly Week 5-8 : Inject 0.5ml (50 syringe units) once weekly Week 9-12: Inject 1 ml (100 syringe units) once weekly Discharge Instructions Instructions: Colon polyps, Diverticulosis Additional Instructions: Leonarda, it was very nice to meet you today, and I hope you feel well this afternoon. Your colonoscopy went very smoothly. Your prep was excellent, and I could see everything quite nicely. I did find, and removed 1 tiny bit of tissue in your large intestine appeared consistent with a polyp. This is really quite small, and might not even be a true polyp. However, to be safe, I did remove this, and I will send it off to the pathologist for them to review. Those results will take about a week or 2 to get back, and once my office has had information we will be in touch with recommendations for your next colonoscopy. Incidentally, you have some mild evidence of diverticulosis as well. Diverticula are little weak spots in the muscular layer of the colon wall. They typically accumulate as we age. I find them in most patients that I perform colonoscopies on, and many patients never know that they are there. I will attach a little bit of information here about diverticulosis as well as colon or rectal polyps. If you have any questions, or need anything at all, please do not hesitate to ask. 1. If tolerated, consume a soft, low fiber diet for 1-2 days. 2[address] Do not drive, drink alcohol, operate machinery, make critical decisions, or do activities that require coordination or balance for 24 hours. 3. Because air was put into your colon during the procedure, expelling air from your rectum (passing gas or farting) is normal. 4. You may not have a bowel movement for 1-3 days because of the colonoscopy prep. This is normal. 5. Go directly to the emergency room if you notice any of the following: Develop chills (warm to touch), or if you have a thermometer and your temperature is above 101 Difficulty breathing or difficultly swallowing Persistent vomiting Severe abdominal pain, other than gas cramps Severe chest pain Black, tarry stools Any bleeding ? exceeding one tablespoon 6. Call your physician if the site where your intravenous was started becomes red, swollen, painful, and warm to touch. 7. Your physician has reviewed your pre-procedure medications. Please continue to take those medications as previously ordered. You will be given specific information/education regarding any changes to your medications before leaving. Activity:: Activity as Tolerated Diet:: As Tolerated Discharge Orders Discharge Orders: Discharge Order (Routine); Ordered 07/25/24 Ordered By: Zain Cifuentes DS: Diagnosis Discharge Diagnosis (1) Encounter for screening colonoscopy: Status: Acute Asessment and Plan: Follow-up on polypectomy results
--- NOTE | 2024-07-25 20:11 | W.COLOREPORT ---
Date of service: 07/26/24 Time of Service: 07:57 Colonoscopy Report Date of procedure: 07/26/24 Pre-op diagnosis general: screening colonoscopy Post-op diagnosis procedure note: other (Diverticulosis, colon polyp) Procedure: colonoscopy with polypectomy Surgeon: Zain Cifunetes Anesthesia Type: General:No Airway Estimated blood loss (mL): 5 Pathology: other (0.25 cm flat cecal polyp) Complications: None Disposition: same day Indications: Leonarda is a 68 year old woman who needs a screening colonoscopy Prep: Miralax/Dulcolax Procedure Start Time: 07:33 Procedure End Time: 07:43 Retraction Time: 5 Findings: sigmoid diverticula, 0.25 cm flat cecal polyp Procedure Description: After the induction of anesthesia, and with the patient in left lateral decubitus position, I began by performing an external anorectal exam.? Perineum and skin were normal, as was the anal verge.? There was no evidence of external hemorrhoids.? Next, I performed a digital rectal exam.? I did not appreciate any abnormal findings.? Next, I advanced a colonoscope into the rectal vault.? I performed retroflexion.? This appeared normal.? Using insufflation, I then advanced the colonoscope beyond the rectal folds and into the sigmoid colon before advancing towards the cecum.? The scope was noted to be in the cecum by identification of the ileocecal valve and appendiceal orifice.? I then began withdrawing the colonoscope using repeated irrigation as necessary for full evaluation of the colonic mucosa. ?In the upper portion of the cecum, as we transition into the ascending colon was a 0.25 cm flat polyp. This was removed with cold forceps without any issues. There was minimal bleeding. There was some evidence of narrow mouth diverticula within the sigmoid segment. These appeared relatively sparse. once the scope was withdrawn to the level of the rectum, great care was taken to examine portions of the rectal folds.? Finally, the scope was withdrawn and the patient was brought to the same-day surgery recovery unit as the anesthetic wore off. ?The findings and instructions were shared with the patient prior to discharge. Navarro Bowel Prep Navarro Bowel Prep Right Colon: 3 Left Colon: 3 Transverse Colon: 3 Total Score: 9
[2024-07-26 06:31] VITALS: BP 118/81; PULSE 71; RESP 14; TEMP 36.3; O2SAT 99
[2024-07-26] MEDS: Lactated Ringers 1,000 ML 80 ML IV (06:46)
--- NOTE | 2024-07-26 06:58 | ANES.PREOP_ITS ---
General Info Date of Service Date Performed: 07/26/24 Height: 5 ft 5 in Weight: 78.4 kg Body Mass Index (BMI): 28.8 Surgical Procedure: Operation Date: 07/26/24 07:35 Proposed Procedure Side Surgeon p Colonoscopy Zain Cifuentes MD Actual Procedure Side Surgeon p Colonoscopy Not Applicable Zain Cifuentes MD Pre-Op Diagnosis Post-Op Diagnosis screening colo; family hx of anal CA Meds Allergies and Home Medications Allergies Allergy/AdvReac Type Severity Reaction Status Date / Time latex Allergy Intermediate blisters Verified 07/26/24 06:29 Sulfa (Sulfonamide Allergy One kidney Verified 07/26/24 06:29 Antibiotics) Home Medication ?Medication ?Instructions ?Recorded estradiol 0.01% (0.1 mg/gram) 1 appful vaginal DAILY # 127.5 grams 03/13/24 vaginal cream (Estrace) valacyclovir 500 mg tablet 500 mg PO PRN #30 tabs 03/06 lorazepam 0.5 mg tablet 0.5 mg PO QDAY PRN anxiety # 10 tabs 03/16/24 meloxicam 15 mg tablet See Rx Instructions .Route 0 06/11/24 .COMPLEX #90 tabs rosuvastatin 20 mg tablet 20 mg PO DAILY #90 tabs 06/10 04/06 semaglutide (weight loss) 0.25 0.25 mg (0.5 mL) subcut QWEEK #5 mL 07/01/24 mg/0.5 mL subcutaneous pen injector (Sumitgovy) Held on 07/26/24. Instructions: Pt Stopped/Never Started Current Visit Medications: Current Medications Generic Name Dose Route Start Last Admin Trade Name Freq PRN Reason Stop Dose Admin Ringer's Solution 1,000 mls @ 80 mls/hr 07/26/24 06:00 07/26/24 06:46 IV 07/26/24 23:59 80 mls/hr INFUSION TAZ Administration IV Miscellaneous Supplies 1 each 07/26/24 06:00 Iv Access IV 07/26/24 23:59 DIRECTED TAZ Ondansetron HCl 4 mg 07/25/24 20:17 Ondansetron 4 Mg/2 Ml Vial IVP 08/24/24 20:16 Q4H PRN PRN Nausea / Vomiting Sodium Chloride 0 ml 07/26/24 06:00 Normal Saline Flush 10 Ml Syr IV 07/26/24 23:59 PRN PRN Sodium Chloride 0 ml 07/26/24 06:00 Normal Saline 10 Ml Vial IJ 07/26/24 23:59 DIRECTED PRN Sterile Water 0 ml 07/26/24 06:00 Water,Injection,Sterile 10 Ml Vial IJ 07/26/24 23:59 DIRECTED PRN PFSH Active Problems Active Problems: Problem Status Onset Code Encounter for screening colonoscopy Acute Z12.11 Obesity Chronic E66.9 Encounter for weight management Acute Z76.89 Left hip pain Acute M25.552 Scoliosis Acute M41.9 Fecal incontinence Acute R15.9 Left knee pain Acute M25.562 Reactive airway disease Acute J45.909 Allergic response Acute T78.40XA Hyperlipidemia Acute E78.5 Lower back pain Acute M54.50 CKD (chronic kidney disease) Chronic N18.9 Chronic cough Acute R05.3 Arthritis of acebjydh-xhkbmavfe-nalbntpbt joint of both hands Acute M19.031, M19.032 Medical History Medical History Hyperlipidemia Lumbar back pain BMI 27.0-27.9,adult Hand numbness Elevated blood sugar Chronic rhinitis Anxiety Alcohol abuse Arthritis of qbzqnxzo-cetkgkulm-fsgnxycdz joint of right hand Primary osteoarthritis, right wrist De Quervain's tenosynovitis, right Vaginal atrophy Lichen sclerosus (06/17/16) Panic attack Surgical History Surgical History History of wisdom tooth extraction History of bunionectomy H/O colonoscopy Ligation of fallopian tube Nephrectomy kidney donation Tobacco Smoking/Tobacco Use Status: Former Tobacco Use Passive smoking exposure: Yes Second hand exposure: Yes Alcohol Alcohol Intake: former Year quit: 2023 Substance Use Substance use: Current Sobriety Substance use type: former substance user and marijuana Prental History History 0 Para Hx # Term Pregnancies Multiple births Hx # Pregnancies Ectopic pregnancies AB induced Hx Number of Living Children AB spontaneous Vital Signs and Lab Results Vital Signs Most Recent Vital Signs in EMR: Most Recent Vital Signs Temp Pulse Resp BP Pulse Ox 36.3 C L 71 14 118/81 99 07/26/24 06:31 07/26/24 06:31 07/26/24 06:31 07/26/24 06:31 07/26/24 06:31 Imaging and Studies Imaging and Studies Study information below may be from another EMR and interpreted by another provider. Please see original notes in EMR for more complete details. Stress Test Summary: 09/2015 Impressions: Normal myocardial perfusion and contraction after maximal exercise. Summary: 1. Myocardial perfusion imaging: No myocardial perfusion defects noted. 2. The calculated left ventricular ejection fraction after stress: 66%. LV global systolic function is normal. No left ventricular regional motion abnormality. 3. Stress ECG conclusions: The stress ECG is likely a false positive positive. Ignacio treadmill score: 2. This score predicts a moderate risk of cardiac events. 4. Stress: There is a normal resting blood pressure with an appropriate response to stress. The patient experienced no chest pain during stress. Exercise capacity is average for age. Pulmonary Function Summary: Impression Normal pulmonary function testing Clinical Correlation therefore is recommended. Anesthesia Assessment and Plan Anesthesia History Personal History: Other Family History: No Family History of Anesthesia Complications Exercise Tolerance Exercise Tolerance: Metabolic Equivalents>4 Pertinent Negatives Pertinent Negatives: No Symptoms of GERD Cardiac & Pulmonary Exam Cardiac Exam: Normal S1/S2 Heart Sounds Pulmonary Exam: Clear Bilateral Breath Sounds Implantable Cardiac Device Does patient have a Pacemaker or an ICD?: No Airway Exam Known Difficult Airway: No Mallampati Class: 2 Mouth Opening: Normal (> 3cm) Thyromental Distance: Less than 3 cm Neck Range of Motion: Full ROM Neck Circumference: Normal Teeth Condition: Normal Dentition ASA Classification ASA Score: ASA 2 Emergency Case?: No NPO Status NPO Status: NPO Clears >2 hours, Solids >8 hours Anesthesia Plan Resuscitation Status: Full Code Anesthesia Technique: General Anesthesia Airway Planned: Natural Airway Monitors Used: Standard Monitors
[2024-07-26 07:04] VITALS: BMI 28.8
--- NOTE | 2024-07-26 07:43 | BOWEL_PTH ---
PATIENT: Lisa Hyman LOC: [facility] U#:[id number] AGE/SX: 68/F ROOM: RE07/26/[address]: Zain Cifuentes MD : [id number] BED: DIS: 07/26/2024 SPEC #: [id number] RECD: 07/26/24 12:50 STATUS: MAGALI REQ #: [id number] STACEY: 07/26/24 07:[address]: Zain Cifuentes DEPT: Surgical Specimen RECD BY: Nahed Franco ENTERED: 07/26/24 12:51 SP TYPE: Bowel OTHR DR: Zeyad Santos DNP Tissues: 1 - BIOPSY BOWEL Procedures: GROSS AND MICRO LEVEL 4 Comments: [id number]
[2024-07-26 07:54] VITALS: BP 113/71; PULSE 72; RESP 16; TEMP 36.3; O2SAT 95
[2024-07-26 08:27] VITALS: BP 141/83; PULSE 60; RESP 18; TEMP 36.4; O2SAT 97
--- NOTE | 2024-07-26 11:32 | W.ANESPOSTOP ---
Postoperative Evaluation Date, Time and Location Date Performed: 07/26/24 Time Performed: 08:12 Patient Location: Day Surgery Unit Vital Signs Most Recent Imported Vital Signs: Most Recent Vital Signs Temp Pulse Resp BP Pulse Ox 36.4 C L 60 18 141/83 H 97 07/26/24 08:27 07/26/24 08:27 07/26/24 08:27 07/26/24 08:27 07/26/24 08:27 Pain Score Most Recent Pain Score: Most Recent Pain Score Pain Level 0 07/26/24 08:27 Assessment Mental Status: Awake (Alert & Oriented to Patient Baseline) Airway and Respiratory Function: Patent airway with normal (patient baseline) respiratory exam Cardiovascular Function: Hemodynamically Stable Hydration Status: Adequately Hydrated Nausea & Vomiting: No Nausea or Vomiting Pain: Pt. Denies Any Pain Peripheral Nerve Block: Patient did not receive a nerve block
== END 2024-07-26 09:02 | disposition home or self-care (01) ==
PROVIDERS: PCP Nurse Practitioner Family; Visit Provider Surgery
PROC: 0DJD8ZZ Inspection of Lower Intestinal Tract, Via Natural or Artificial Opening Endoscopic (ICD-10-PCS; CPT 45378; principal; 2024-07-26 07:30)
DX: Z12.11 Encounter for screening for malignant neoplasm of colon (principal); D12.0 Benign neoplasm of cecum; K57.30 Diverticulosis of large intestine without perforation or abscess without bleeding; Z80.0 Family history of malignant neoplasm of digestive organs
CPT/HCPCS: 45380; 88305; J2704

== ENCOUNTER 2024-08-14 10:22 | Outpatient (CLI) | payer MEDICARE, SELFPAY ==
--- NOTE | 2024-08-14 11:08 | DI.RAD_ITS ---
Exam(s) XR SACROILIAC JOINTS EXAM: XR SACROILIAC JOINTS CLINICAL HISTORY: [facility] pathology. TECHNIQUE: 2D digital imaging was performed. COMPARISON: No exams were available for comparison FINDINGS: 3 views The sacrum and sacroiliac joints appear txrabqutqrmp-cmq-ceterzncgrp. There are minimal degenerative changes in the left SI joint which is age-appropriate. No evidence of obvious sacroiliitis and no evidence of ankylosis of the sacroiliac joints. No osseous lesions. Hips joint spaces appear preserved. There is disc space narrowing in the lower lumbar spine incidentally noted. IMPRESSION: Age-appropriate appearing sacroiliac joints. DATA REPOSITORY: RADIATION DOSE DELIVERED:
--- NOTE | 2024-08-14 11:31 | DI.VRAD_ITS ---
PROCEDURE INFORMATION: Exam: XR Bilateral Sacroiliac Joints Exam date and time: 08/14/2024 10:59 AM Age: 69 years old Clinical indication: Pain; Other: Evaluate pathology TECHNIQUE: Imaging protocol: XR bilateral XR of the sacroiliac joints. Views: 3 or more views. COMPARISON: MRI, LUMBAR SPINE S/ CONTRAST 03/31/2024 10:37 AM FINDINGS: Bones/joints: Minimal degenerative change in the inferior left sacroiliac joint where there are tiny marginal osteophytes.. Normal appearance of the right sacroiliac joint. Degenerative arthritis lower lumbar facets. Soft tissues: Normal. IMPRESSION: No acute findings. Minimal degenerative change inferior left sacroiliac joint. Dictated and Authenticated by: Leonarda Levy MD. Orderin Queta Corrales MD
== END 2024-08-14 10:42 ==
LOC: DI 10:30
PROVIDERS: PCP Nurse Practitioner Family; Visit Provider Nurse Practitioner Family
DX: M54.31 Sciatica, right side (principal)
CPT/HCPCS: 72202